=== PATIENT | female | born 1995 | race Caucasian/White ===

== ENCOUNTER 2019-08-19 22:24 | Emergency (ER) | payer BC ==
[~2019-08-19] VITALS: Ht 170.2 cm; Wt 73.0 kg
[2019-08-19 22:59] VITALS: BP 117/68
== END 2019-08-20 01:01 | disposition left against medical advice (07) ==
LOC: ER 22:24
DX: N23 Unspecified renal colic (principal); Z53.21 Procedure and treatment not carried out due to patient leaving prior to being seen by health care provider

== ENCOUNTER 2022-06-27 17:58 | Emergency (ER) | payer BC, MEDICAID ==
[~2022-06-27] VITALS: Ht 172.7 cm; Wt 89.0 kg
[2022-06-27] MEDS ORDERED: IBUPROFEN 600MG TABLET PO STA (18:10)
[2022-06-27 19:42] LABS: BASOPHILS % 0.5 % (0.0-2.0); EOSINOPHILS % 1.9 % (0.0-5.0); HEMATOCRIT. 41.5 % (36.0-48.0); HEMOGLOBIN. 14.4 g/dL (12.0-16.0); LYMPHOCYTES % 15.7 % (20.0-50.0); MEAN CORPUSCULAR VOLUME 92.1 fL (81.0-99.0); MEAN PLATELET VOLUME 7.6 fl (7.4-10.4); MONOCYTES % 12.4 % (2.0-8.0); NEUTROPHILS % 69.5 % (40.0-76.0); PLATELET 279 x1000/uL (130-400); RED BLOOD CELL COUNT 4.51 mill/uL (4.2-5.4); RED CELL DISTRIBUTION WIDTH 13.2 % (11.6-14.6)
[2022-06-27 19:50] LABS: CHLORIDE 97 mEq/L (98-107)
[2022-06-27] MEDS ORDERED: IBUPROFEN 600MG TABLET PO NR (20:00)
[2022-06-27] MEDS ORDERED: ALBU6.7H3 INH (21:19)
[2022-06-27 21:20] VITALS: BP 140/100
== END 2022-06-27 21:25 | disposition home or self-care (01) ==
LOC: ER 17:58
DX: R07.89 Other chest pain (principal); R42 Dizziness and giddiness; R03.0 Elevated blood-pressure reading, without diagnosis of hypertension
CPT/HCPCS: 36415; 71045; 80053; 85025; 93005; 99285

== ENCOUNTER 2022-08-06 11:57 | Emergency (ER) | payer MEDICAID ==
[~2022-08-06] VITALS: Ht 172.7 cm; Wt 68.0 kg
[~2022-08-06 11:57] MED LIST: ALBU6.7H3 INH
[2022-08-06 12:03] VITALS: BP 154/95
[2022-08-06] MEDS ORDERED: IBUP-2029 MT (14:58)
[2022-08-06] MEDS ORDERED: AMOX1TAB16 MT (14:58)
== END 2022-08-06 16:14 | disposition home or self-care (01) ==
LOC: ER 11:57
DX: S61.451A Open bite of right hand, initial encounter (principal); W55.01XA Bitten by cat, initial encounter; Y93.89 Activity, other specified; Y92.017 Garden or yard in single-family (private) house as the place of occurrence of the external cause
CPT/HCPCS: 73120; 81025; 99283

== ENCOUNTER 2024-05-12 16:00 | Emergency (ER) | payer MEDICAID ==
[~2024-05-12] VITALS: Ht 172.7 cm; Wt 66.0 kg
[~2024-05-12 16:00] MED LIST changes: +AMOX1TAB16 MT; +IBUP-2029 MT
[2024-05-12 16:10] VITALS: O2SAT 99
[2024-05-12 19:33] LABS: BASOPHILS % 0.5 % (0.0-2.0); EOSINOPHILS % 0.7 % (0.0-5.0); HEMATOCRIT. 28.8 % (36.0-48.0); HEMOGLOBIN. 8.7 g/dL (12.0-16.0); LYMPHOCYTES % 25.3 % (20.0-50.0); MEAN CORPUSCULAR HEMOGLOBIN 19.7 pg (28.0-32.0); MEAN CORPUSCULAR HGB CONC 30.1 g/dL (31.0-37.0); MEAN CORPUSCULAR VOLUME 65.6 fL (81.0-99.0); MEAN PLATELET VOLUME 7.9 fl (7.4-10.4); MONOCYTES % 9.8 % (2.0-8.0); NEUTROPHILS % 63.7 % (40.0-76.0); PLATELET 429 x1000/uL (130-400); RED BLOOD CELL COUNT 4.38 mill/uL (4.2-5.4); RED CELL DISTRIBUTION WIDTH 20.1 % (11.6-14.6); WHITE BLOOD COUNT 7.3 x1000/uL (4.5-11.0)
[2024-05-12 19:34] LABS: ADD RBC MORPHOLOGY YES; DIFFERENTIAL COMMENT 1
[2024-05-12 19:38] LABS: CHLORIDE 107 mEq/L (98-107); POTASSIUM 3.5 mEq/L (3.5-5.1); SODIUM 138 mEq/L (136-145)
[2024-05-12 19:39] LABS: CALCIUM 9.5 mg/dL (8.7-10.4); CARBON DIOXIDE 25 mEq/L (21-32)
[2024-05-12 19:44] LABS: CREATININE 0.8 mg/dL (0.6-1.0); GLUCOSE 91 mg/dL (70-105); UREA NITROGEN BLOOD 7 mg/dL (9-23)
[2024-05-12 19:45] LABS: TROPONIN I HIGH SENSITIVITY 4 ng/L (3.0-34)
[2024-05-12 19:54] LABS: HCG SCREEN NEGATIVE
[2024-05-12 20:35] VITALS: BP 131/69; PULSE 72; RESP 19; TEMP 36.89184; O2SAT 100
[2024-05-12 21:20] LABS: ANISOCYTOSIS 2+; HYPOCHROMASIA 2+; MICROCYTOSIS 3+; OVALOCYTES 1+; PLATELET ESTIMATE SLIGHTLY INCREASED
== END 2024-05-12 20:35 | disposition home or self-care (01) ==
LOC: ER 16:03
DX: D64.9 Anemia, unspecified (principal); Z90.49 Acquired absence of other specified parts of digestive tract
CPT/HCPCS: 36415; 71045; 80048; 81025; 84484; 84703; 85025; 93005; 99285